=== PATIENT | male | born 1985 | race African-American/Black ===

== ENCOUNTER 2019-12-28 09:28 | Emergency (ER) | payer OTHER ==
[~2019-12-28] VITALS: Ht 185.4 cm; Wt 90.7 kg
[2019-12-28 09:36] VITALS: BP 127/76
[2019-12-28] MEDS ORDERED: TESSALON PERLE100 M1 PO (10:37)
== END 2019-12-28 10:38 | disposition home or self-care (01) ==
LOC: ER 09:28
DX: R05 Cough (principal); J02.9 Acute pharyngitis, unspecified